=== PATIENT | female | born 2000 | race African-American/Black ===

== ENCOUNTER 2020-01-28 11:15 | Emergency (ER) | payer SELFPAY ==
[2020-01-28] MEDS ORDERED: Metoclopramide HCl 10 MG/2 ML VIAL ONE (11:43)
[2020-01-28] MEDS ORDERED: diphenhydrAMINE 50 MG/ML VIAL ONE (11:43)
[2020-01-28] MEDS ORDERED: Ketorolac Tromethamine 30 MG/ML VIAL ONE (11:43)
== END 2020-01-28 13:18 | disposition home or self-care (01) ==
LOC: ERS 11:15
DX: G43.909 Migraine, unspecified, not intractable, without status migrainosus (principal)
CPT/HCPCS: 96365; 96375; J1200; J1885; J2765